=== PATIENT | male | born 1945 | race Caucasian/White ===

== ENCOUNTER 2019-10-23 15:55 | Outpatient (RCR) | payer OTHER | END 2019-11-05 | disposition home or self-care (01) | LOC: WCC 15:55 | DX: H91.93 Unspecified hearing loss, bilateral (principal); Z88.0 Allergy status to penicillin; I10 Essential (primary) hypertension; Z79.899 Other long term (current) drug therapy | CPT/HCPCS: G0463 ×2 ==

== ENCOUNTER 2019-10-28 10:48 | Outpatient (RCR) | payer SELFPAY | END 2019-11-05 | disposition home or self-care (01) | LOC: WCC 10:48 | DX: H91.93 Unspecified hearing loss, bilateral (principal); Z88.0 Allergy status to penicillin; I10 Essential (primary) hypertension; Z79.899 Other long term (current) drug therapy | CPT/HCPCS: G0277 ×4 ==

== ENCOUNTER 2019-11-07 10:29 | Outpatient (RCR) | payer SELFPAY | END 2019-12-06 | disposition home or self-care (01) | LOC: WCC 10:29 | DX: H91.93 Unspecified hearing loss, bilateral (principal); Z88.0 Allergy status to penicillin | CPT/HCPCS: G0277 ×4 ==

== ENCOUNTER 2019-12-23 12:05 | Outpatient (RCR) | payer SELFPAY | END 2020-01-04 | disposition home or self-care (01) | LOC: WCC 12:05 | DX: H91.93 Unspecified hearing loss, bilateral (principal) ==